=== PATIENT | female | born 1930 | race African-American/Black ===

== ENCOUNTER 2017-12-28 07:55 | Inpatient (IN) | payer MEDICARE, MEDICAID ==
[2017-12-28 08:50] LABS: Troponin I 0.752 ng/mL (< 0.028)
[2017-12-28] MEDS ORDERED: Piperacillin/Tazobactam 3.375 GM VIAL ONE ×2 (09:02→09:13)
[2017-12-28] MEDS ORDERED: Sodium Chloride 0.9% 100 ML ONE (09:13)
[2017-12-28] MEDS ORDERED: Ondansetron HCl/PF 4 MG/2 ML Vial IVP PRN (09:22)
[2017-12-28] MEDS ORDERED: Bisacodyl 10 MG SUPP PR PRN (09:22)
[2017-12-28] MEDS ORDERED: Acetaminophen 325 MG TAB PO PRN (09:22)
[2017-12-28] MEDS ORDERED: Dextrose 5% in Water 1,000 ML IV SCH ×2 (09:30→13:23)
--- NOTE | 2017-12-28 09:33 | CT ---
CT BRAIN WITHOUT CONTRAST: History: Nonverbal. Aphasic. Prior CVA. 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 There are multiple hypodensities along the right cerebellar hemisphere, new from the comparison examination. Moderate atrophy. No midline shift or mass effect. No hemorrhage. Moderate microvascular ischemic changes. IMPRESSION: 1. Chronic changes. No acute intracranial abnormalities. 2. Moderate fluid filling of the right mastoids. POS: C
--- NOTE | 2017-12-28 10:39 | PDOC.FPRHP ---
- History of Present Illness Chief Complaint: Lethargic History of Present Illness: 87 yo F care home resident with PMH of dmenetia, prior tias, gout and hypertension presents form nursing facility after pt was reported to be more lethargic over the last 24 hours. Family reports that the staff has noticed a change in her baseline energy and mentation over the last day. Additionally, they noted the pt had 2 BM's prior to being transferred to [facility] for further evaluation. On arrival to [facility] pt was thought to have RLL pneumonia as possible cause of her decreased energy and AMS. She was given IV levaquin and zosyn. On arrival to ED at [facility] she had a brain CT which did not show any acute intracranial process. She was found to be hypernatremic, hypothermic, bradycardic in the ED but BP has remained stable. Otherwise, unable to elicit any localizing symptoms from family or records. Pt unable to communicate at baseline. Does have a modified diet at care home including pureed solids and nectar thickened liquids. ED Course: Levaquin, zosyn - Allergies/Adverse Reactions Allergies Allergy/AdvReac Type Severity Reaction Status Date / Time No Known Allergies Allergy Verified 08/05/14 00:51 - Home Medications Medication Instructions Recorded Confirmed Type Allopurinol [Zyloprim] 1 tab PO DAILY 12/28/17 12/28/17 History Atorvastatin Calcium [Lipitor] 10 mg PO DAILY 12/28/17 12/28/17 History Carvedilol [Coreg] 6.25 mg PO BID 12/28/17 12/28/17 History Colchicine 0.6 mg PO BID 12/28/17 12/28/17 History Docusate [Colace] 100 mg PO DAILY 12/28/17 12/28/17 History Donepezil HCl [Aricept] 10 mg PO HS 12/28/17 12/28/17 History Furosemide [Lasix] 40 mg PO BID 12/28/17 12/28/17 History Ipratropium/Albuterol Sulfate 3 ml NEB TID 12/28/17 12/28/17 History Memantine HCl [Namenda] 10 mg PO BID 12/28/17 12/28/17 History Multivitamin [Multi-Vitamin Daily] 1 tablet PO DAILY 12/28/17 12/28/17 History Omeprazole Magnesium [Prilosec] 20 mg PO HS 12/28/17 12/28/17 History - History PMHx: TIA vs CVA, Dementia, HTN, gout PSHx: Hysterectomy, cholecystectomy FHx: CA, HTN, DMII, dementia Social: senior care resident Diet nectar thick with pureed - Review of Systems ROS unobtainable: due to mental status General: reports: fatigue (per family) - Vital signs BP: 137/94 HR: 67 RR: 22 Tmax: 95.6 Pox: 97% on RA Wt: 87Kg - Physical Exam Constitutional: other (Lethargic, Oriented X0) HEENT: normocephalic and atraumatic, conjunctiva clear, no scleral icterus Neck: supple, FROM, trachea midline, no LAD, no JVD, no thyromegaly Heart: normal S1/S2, no murmurs/rubs/gallops, pulses present, other (bradycardia , regular rhythm. Pitting edema to above knee 2+) Lungs: CTAB, no respiratory distress, no rales/rhonchi, no wheezing, no retractions, other (poor inspiratory effort) Abdomen: soft, non-tender, bowel sounds present, no masses/distention Neurological: other (No focal deficit, oriented X0, echolalia speech pattern) Skin: capillary refill <2 seconds, other (Stage 1 decub left buttocks) Heme/Lymphatic: no unusual bruising or bleeding, no petechia Psychiatric: other (End stage dementia, oriented X0, incomprehensible echolalic speech pattern) FMR H&P: Results - Labs Result Diagrams: 12/28/17 11:16 - EKG Interpretation EKG: A fib, bradycardia - Radiology Interpretation Chest x-ray Status: report reviewed by me (Patchy alveolar infiltrates, left pleural effusion) CT scan - head Status: report reviewed by me (No acute intracranial process) FMR H&P: A/P - Problem List (1) Encephalopathy acute Current Visit: Yes Status: Acute Code(s): G93.40 - ENCEPHALOPATHY, UNSPECIFIED (2) Elevated troponin Current Visit: Yes Status: Acute Code(s): R74.8 - ABNORMAL LEVELS OF OTHER SERUM ENZYMES (3) Hypernatremia Current Visit: Yes Status: Acute Code(s): E87.0 - HYPEROSMOLALITY AND HYPERNATREMIA (4) HTN (hypertension) Current Visit: Yes Status: Acute Code(s): I10 - ESSENTIAL (PRIMARY) HYPERTENSION (5) A-fib Current Visit: Yes Status: Acute Code(s): I48.91 - UNSPECIFIED ATRIAL FIBRILLATION (6) Transaminitis Current Visit: Yes Status: Acute Code(s): R74.0 - NONSPEC ELEV OF LEVELS OF TRANSAMNS & LACTIC ACID DEHYDRGNSE (7) Dementia Current Visit: No Status: Chronic Code(s): F03.90 - UNSPECIFIED DEMENTIA WITHOUT BEHAVIORAL DISTURBANCE - Plan 1) Encephalopathy: Unknown cause. Possibly 2/2 acute metabolic encephalopathy from hypernatremia vs infection vs cardiogenic -Pt given levaquin and zosyn in ER, will continue with coverage although CXR did not show evidence of pna and procalcitonin was negative. -BNP pending -D5W for hypernatremia, repeat BMP q4hrs, on chart review this appears to be a bit of a chronic issue, although current level higher than Na levels in the past 2) Elevated troponin: Pt had elevated troponins in the NSTEMI range which trended down. Most recent draw was less than original; however, higher than previous, will give therapeutic lovenox and cover. This is likely 2/2 demand ischemia as pt appears clinically overloaded and has a h/o diastolic failure. 3) Hypernatremia: d5W. Trend BMPs and continue to monitor. Possibly cause of encephalopathy. Given pt clinically volume overloaded, consider iatrogenic vs med effect vs hyperaldosteronism. -check serum and urine osmolality -trend 4) HTN: Stable, cont home medications 5) A-fib: cont home meds, consider decreased dose as pt is bradycardic 6)Transaminitis: Elevated AST and Alk phos. Trend. No evidence of GI distress/ TTP on exam. 7) Dementia: Cont home meds 8) PPX: Th lovenox and pepcid for dvt and GI ppx 9) Code Status: Pts daughters present in rooms and wish for pt to be full code Disposition/LOS: guarded, >/= 2 days FMR H&P: Upper Level - Pertinent history 87yo AAF with pmhx sig for dementia (FAST 7c at baseline) and prior TIA ( multiple) presents to [facility] after transfer from [place] ED for change in mental status from baseline. Pt found to be hypernatremic to 153 in [place], and found to have some infiltrate in the RML. Dx'ed as pneumonia and started emperically on abx (given levaquin in ED). Family at bedside states pt noted to be less responsive than baseline over the last 2-3 days and had increase in sleeping and decrease in her expressions. Last normal was noted to be 3 days ago. Baseline per family is pt singing and smiling, but is bed bound. She is cared for at [facility] by Dr. Munoz. PMHx- Afib dementia CKD - Pertinent findings PE- Gen- asleep but arousable, communicative but not clear speech, well appearing Lungs- faint crackles in bilateral bases CV- rrr, no mrg Abd- soft, nontender LE- 3+ pitting edema to b/l LE Psyc- alert when aroused, unable to answer questions Pertinent labs- Laboratory Tests 12/28/17 12/28/17 12/28/17 05:20 05:20 05:20 WBC 3.5 L Hgb 14.6 Hct 51.6 H Plt Count 157 Sodium 153 H Potassium 5.1 Chloride 120 H Carbon Dioxide 23 BUN 35 H Creatinine 1.95 H Estimated GFR (MDRD) 29 Glucose 88 Calcium 8.9 Total Bilirubin 1.0 AST 51 H ALT 31 Alkaline Phosphatase 256 H Creatine Kinase 51 CK-MB (CK-2) 3.9 Troponin I 0.867 H* Serum Total Protein 6.8 Albumin 3.2 L 12/28/17 08:17 WBC Hgb Hct Plt Count Sodium Potassium Chloride Carbon Dioxide BUN Creatinine Estimated GFR (MDRD) Glucose Calcium Total Bilirubin AST ALT Alkaline Phosphatase Creatine Kinase CK-MB (CK-2) Troponin I 0.752 H* Serum Total Protein Albumin CXR- rotated film. mild fluffy infiltrate of RML/interstitium, cardiomegaly vs. Left pleural effusion - Plan Date/Time: 12/28/17 1037 87yo AAF with pmhx dementia and prior TIA presents with-- 1) Acute toxic metabolic encephalopathy- likely secondary to hypernatremia vs. infection/PNA vs. CVA. treat hypernatremia. CT head negative. consider MRI. 2) Hypernatremia- Tx w/ d5w and monitor closely to avoid rapid correction. check serum & urine osmols. 3) Sepsis secondary to presumed PNA- hypothermic and leukopenic on admission. pending BCx. Cover with levaquin + zosyn for presumed infectious etiology to cover for pseudomonal and aspiration possibilities. repeat CXR in am, check procalcitonin. 4) NSTEMI due to demand ischemia (presumed)- trend troponins, give therapeutic lovenox (renally dosed). monitor for acute changes. 5) pAfib- monitor on telemetry 6) CKD4- avoid nephrotoxins, renally-dose meds. 7) LE edema- check TSH to rule out pretibial myxedema/ myxedema coma. check osmols. I, [Carmen Buck DO ([email or web address])], have evaluated this patient and agree with findings/plan as outlined by music industry intern resident. Pertinent changes/additions are listed here. Attending Addendum - Attending Addendum Date/Time: 12/28/17 3887 I personally evaluated the patient and discussed the management with Dr. Coleman I agree with the History, Examination, Assessment and Plan documented above with any addition or exceptions noted below. 87 yo patient transferred from [facility] to [place] ER with AMS today . Patient felt to have RLL PNA demand ischemia and transferred to [facility] for further care and evaluation. Patient with PMHX of advanced Dementia however decreased responsiveness noted today. Patient with prior mini-strokes per family , bedridden and placed in care home several years ago. Patient exam; Oriented X zero, patient arousable with stimulation, doesn't follow commands, no intelligible speech, contractures noted upper and lower extremities, Patient with bradycardia, mild hypothermia and edema to lower extremities, skin with superficial irritation to sacrum. CXR questionable infiltrate RLL rotated film. Lab hypernatremia, hyperchloremia elevated RFTs. CT of head negative for acute bleed CVA. Discussed history with Daughters in attendance one of which is designated POA and request DNR status at this time. Patient placed on empirical broad spectrum ABX with pseudomonas coverage intravenous hydration with D5W. Patient dependant feeder at [place] with nectar thickened pureed diet.
[2017-12-28 12:06] LABS: Anion Gap 12 mmol/L (10-20); BUN (Urea Nitrogen) 34 mg/dL (9.8-20.1); Calc. Creatinine Clearance 30 mL/min (70-130); Calcium 8.7 mg/dL (7.8-10.44); Carbon Dioxide 26 mmol/L (23-31); Chloride 119 mmol/L (98-107); Estimated GFR-MDRD 32; Potassium 3.9 mmol/L (3.5-5.1); Sodium 153 mmol/L (136-145)
[2017-12-28 12:21] LABS: Glucose 57 mg/dL (83-110)
[2017-12-28] MEDS ORDERED: Dextrose 50% Abboject 50 ML SYRINGE SLOW IVP STA (12:41)
[2017-12-28] MEDS ORDERED: Enoxaparin Sodium 30 MG/0.3 ML SYRINGE SC SCH (13:00)
[2017-12-28 13:12] LABS: Magnesium 1.9 mg/dL (1.6-2.6); Phosphorus 3.8 mg/dL (2.3-4.7)
[2017-12-28] MEDS ORDERED: Enoxaparin Sodium 100 MG/ML SYRINGE SC SCH (13:30)
[2017-12-28] MEDS: Piperacillin/Tazobactam 3.375 GM in Sodium Chloride 0.9% 100 ML IVPB SCH ×3 (14:10→23:39)
[2017-12-28 14:34] LABS: Osmolality, Serum 330 mOsm/kg (280-295)
[2017-12-28 14:47] LABS: CKMB 4.6 ng/mL (0-6.6)
[2017-12-28 14:56] LABS: Critical Call Chem Troponin I RESULT DECREASING; Troponin I 0.779 ng/mL (< 0.028)
[2017-12-28] MEDS ORDERED: Heparin 5,000 UNITS/ML VIAL SC SCH (15:00)
[2017-12-28 18:43] LABS: Anion Gap 11 mmol/L (10-20); BUN (Urea Nitrogen) 32 mg/dL (9.8-20.1); Calc. Creatinine Clearance 30 mL/min (70-130); Calcium 8.7 mg/dL (7.8-10.44); Carbon Dioxide 26 mmol/L (23-31); Chloride 118 mmol/L (98-107); Estimated GFR-MDRD 32; Glucose 76 mg/dL (83-110); Potassium 3.6 mmol/L (3.5-5.1); Sodium 151 mmol/L (136-145)
[2017-12-28] MEDS ORDERED: Docusate 100 MG CAP PO SCH (21:00)
[2017-12-28] MEDS: Dextrose 5% in Water 1,000 ML IV SCH ×2 (22:03→23:39)
[2017-12-29 04:38] LABS: #Eosinphils 0.1 thou/uL (0.0-0.7); #Lymphocytes 1.1 thou/uL (1.20-3.40); #Monocytes 0.5 thou/uL (0.11-0.59); #Neutrophils 2.3 thou/uL (1.40-6.50); %Basophils 0.6 % (0.0-1.0); %Eosinophils 3.6 % (0.0-10.0); %Lymphocytes 27.1 % (21.0-51.0); %Neutrophils 56.7 % (42.0-75.0); Hemoglobin 12.4 g/dL (12.0-16.0); Mean Corpuscular HGB CONC 30.3 g/dL (32.0-36.0); Mean Corpuscular Hemoglobin 29.7 pg (27.0-31.0); Mean Corpuscular Volume 98.2 fl (81.0-99.0); Mean Platelet Volume 10.6 fL (7.4-10.4); Platelet Count 121 thou/uL (130-400); RBC Distribution Width 17.1 % (11.5-14.5); Red Blood Cell (RBC) Count 4.17 mill/uL (4.20-5.40); White Blood Cell (WBC) Count 4.1 thou/uL (4.8-10.8)
--- NOTE | 2017-12-29 04:54 | CON ---
DATE OF CONSULTATION: 12/28/2017 CONSULTING PHYSICIAN: Melissa Monge M.D. REQUESTING PHYSICIAN: [facility]. REASON FOR CONSULTATION: Hyponatremia with altered mental status. IMPRESSION: 1. Hyponatremia. This is likely free water deficit in the context of a limited free water intake. 2. Acute kidney injury, probably acute on chronic kidney disease. 3. Mental status change in the context of baseline dementia been exacerbated by electrolyte abnormal ity in this case hyponatremia. PLAN: 1. Free water repletion and we will increase the current IV fluid rate. 2. P.r.n. diuresis with stabilization of patient's electrolytes unless patient begins to develop res piratory distress. 3. Renally dose all medications per low GFR. 4. Avoid potentially nephrotoxic agents. HISTORY OF PRESENT ILLNESS: History is that of an 87-year-old female patient, long-term resident, who was brought in with altered mental status, noted with sodium of 153 likely in the context of poo r p.o. intake. The patient at baseline, does have severe dementia. However, deterioration in this n ecessitated presentation to the ER. There is hyponatremia necessitated this renal consultation. PAST MEDICAL HISTORY: Significant for dementia, atrial fibrillation, chronic kidney disease. MEDICATIONS: Reviewed and as documented on [facility]. FAMILY HISTORY: Not significantly related to presenting illness. SOCIAL HISTORY: The patient is a long-term resident. REVIEW OF SYSTEMS: Highly limited given the fact that this patient could not verbalize. PHYSICAL EXAMINATION: GENERAL: The patient was found not to be in any obvious distress. Noted with the following vital si gns. VITAL SIGNS: Afebrile with temperature 96.9, pulse 61, respiratory rate of 20, O2 saturation of 100% with blood pressure 121/81. HEENT: Unremarkable with moist oral mucosa. No conjunctival injection or icterus. NECK: Supple. CARDIOVASCULAR SYSTEM: First and second heart sounds were heard. RESPIRATORY SYSTEM: Clear to auscultation. DIGESTIVE SYSTEM: Revealed a benign abdomen. EXTREMITIES: Showed 2+ bilateral lower extremity edema. SUMMARY: This is an 87-year-old female patient who was brought in with mental status change and note d with hyponatremia. Thank you for this consultation. We will follow with you.
[2017-12-29 04:55] LABS: ALT (SGPT) 20 U/L (8-55); AST (SGOT) 29 U/L (5-34); Albumin 2.6 g/dL (3.4-4.8); Alkaline Phosphatase 183 U/L (40-150); Anion Gap 9 mmol/L (10-20); BUN (Urea Nitrogen) 31 mg/dL (9.8-20.1); Bilirubin, Total 1.1 mg/dL (0.2-1.2); Calc. Creatinine Clearance 32 mL/min (70-130); Calcium 8.1 mg/dL (7.8-10.44); Carbon Dioxide 25 mmol/L (23-31); Chloride 119 mmol/L (98-107); Estimated GFR-MDRD 33; Globulin 2.9 g/dL (2.4-3.5); Glucose 92 mg/dL (83-110); Potassium 3.6 mmol/L (3.5-5.1); Protein, Total 5.5 g/dL (6.0-8.3); Sodium 149 mmol/L (136-145)
[2017-12-29] MEDS ORDERED: Piperacillin/Tazobactam 2.25 GM in Sodium Chloride 0.9% 100 ML IVPB SCH (06:00)
--- NOTE | 2017-12-29 08:26 | PDOC.FM ---
- Subjective Subjective: No acute events overnight. Pt appears more alert than yesterday but still has incomprehensible, repetitive speech pattern. She is arousable to verbal stimuli. Persistent echolelic speech pattern. Sodium continues to improve with free water replacement. She has persistent LE edema, unchanged from yesterday. - Objective Vital Signs & Weight: Vital Signs (12 hours) Temp Pulse Resp BP Pulse Ox 12/29/17 07:55 52 L 20 96 12/29/17 07:40 96.3 F L 57 L 18 99 12/29/17 07:39 96.3 F L 57 L 117/73 93 L 12/29/17 03:56 97.0 F L 62 19 111/55 L 98 12/28/17 23:41 96.7 F L 62 18 111/69 95 Weight Weight 86.693 kg I&O: 12/28/17 12/29/17 12/30/17 06:59 06:59 06:59 Intake Total 2362 Output Total 475 Balance 1887 Result Diagrams: 12/29/17 03:50 12/29/17 03:50 <Danieel Coleman - Last Filed: 12/29/17 08:23> - Objective Vital Signs & Weight: Vital Signs (12 hours) Temp Pulse Resp BP Pulse Ox 12/29/17 11:40 96.7 F L 59 L 24 H 115/86 91 L 12/29/17 07:55 52 L 20 96 12/29/17 07:40 96.3 F L 57 L 18 99 12/29/17 07:39 96.3 F L 57 L 117/73 93 L 12/29/17 03:56 97.0 F L 62 19 111/55 L 98 Weight Weight 86.693 kg I&O: 12/28/17 12/29/17 12/30/17 06:59 06:59 06:59 Intake Total 2362 240 Output Total 475 Balance 1887 240 Result Diagrams: 12/29/17 03:50 12/29/17 03:50 <Stefano Shipman - Last Filed: 12/29/17 12:08> Phys Exam - Physical Examination Constitutional: NAD HEENT: sclera anicteric Neck: no nodes, no JVD Respiratory: no wheezing, no rales, no rhonchi, clear to auscultation bilateral (Difficult exam, pt vocalizing throughout exam) Cardiovascular: RRR, no significant murmur, no rub Gastrointestinal: soft, non-tender, no distention, positive bowel sounds Musculoskeletal: pulses present, edema present (2+ pitting to above knees) Neurological: non-focal Deviation from normal: Dysarhthric, repetitive echolalic speech pattern. Incomprehensible. A&O X0 Skin: no rash, normal turgor, cap refill <2 seconds <Daniele Coleman - Last Filed: 12/29/17 08:23> Dx/Plan (1) Encephalopathy acute Code(s): G93.40 - ENCEPHALOPATHY, UNSPECIFIED Status: Acute (2) Elevated troponin Code(s): R74.8 - ABNORMAL LEVELS OF OTHER SERUM ENZYMES Status: Acute (3) Hypernatremia Code(s): E87.0 - HYPEROSMOLALITY AND HYPERNATREMIA Status: Acute (4) HTN (hypertension) Code(s): I10 - ESSENTIAL (PRIMARY) HYPERTENSION Status: Acute (5) A-fib Code(s): I48.91 - UNSPECIFIED ATRIAL FIBRILLATION Status: Acute (6) Transaminitis Code(s): R74.0 - NONSPEC ELEV OF LEVELS OF TRANSAMNS & LACTIC ACID DEHYDRGNSE Status: Acute (7) Dementia Code(s): F03.90 - UNSPECIFIED DEMENTIA WITHOUT BEHAVIORAL DISTURBANCE Status: Chronic - Plan Plan: 1) Encephalopathy: Unknown cause. Possibly 2/2 acute metabolic encephalopathy from hypernatremia vs infection vs cardiogenic -Pt has clinically improved with correction of her Na. Will continue Na correction. Nephro consulted, appreciate recommendations. -Will DC abx at this time as procal negative and repeat CXR shows no evidence of focal consolidation. 2) Elevated troponin: Pt had elevated troponins in the NSTEMI range which trended down. -Likely 2/2 demand ischemia, troponins trended down -hold therapeutic lovenox at this time. Continue aspirin daily and lovenox for DVT ppx -Echo today for new onset HF - Will ultimately need diuresis, but that is currently complicated by her hypernatremia and free water deficit. Nephro consulted, appreciate recs. 3) Hypernatremia: d5W. Trend BMPs and continue to monitor. Possibly cause of encephalopathy. -Pt improved overnight with down-trending Na. -Nephro consulted, appreciate recs - Free water replacement -AM BMP, trend 4) HTN: Stable, cont home medications 5) A-fib: cont home meds, consider decreased dose as pt is bradycardic 6)Transaminitis: Stable, no evidence of acute process on exam. 7) Dementia: Cont home meds Dispo: Improved, stable. We will continue free water replacement for correction of hypernatremia. Echo today for new onset CHF, BNP>2000. <Daniele Coleman - Last Filed: 12/29/17 08:23> (1) Encephalopathy acute Code(s): G93.40 - ENCEPHALOPATHY, UNSPECIFIED Status: Acute (2) Elevated troponin Code(s): R74.8 - ABNORMAL LEVELS OF OTHER SERUM ENZYMES Status: Acute (3) Hypernatremia Code(s): E87.0 - HYPEROSMOLALITY AND HYPERNATREMIA Status: Acute (4) HTN (hypertension) Code(s): I10 - ESSENTIAL (PRIMARY) HYPERTENSION Status: Acute (5) A-fib Code(s): I48.91 - UNSPECIFIED ATRIAL FIBRILLATION Status: Acute (6) Transaminitis Code(s): R74.0 - NONSPEC ELEV OF LEVELS OF TRANSAMNS & LACTIC ACID DEHYDRGNSE Status: Acute (7) Dementia Code(s): F03.90 - UNSPECIFIED DEMENTIA WITHOUT BEHAVIORAL DISTURBANCE Status: Chronic <Stefano Shipman - Last Filed: 12/29/17 12:08> Attending Addendum - Attending Addendum Date/Time: 12/29/17 1203 I personally evaluated the patient and discussed the management with Dr. Coleman I agree with the History, Examination, Assessment and Plan documented above with any addition or exceptions noted below. Patient improved much more alert and animated, Antibiotic discontinued with no overwhelming evidence for PNA. Appreciate Nephrology recommendations regard hypernatremia currently correcting and will diuresis prn. Rule out secondary hypothyroidism with free T4 today. Long standing hypernatremia noted with impaired thirst and institutional placement as most likely major contributing factors. <Stefano Shipman - Last Filed: 12/29/17 12:08>
--- NOTE | 2017-12-29 08:58 | RAD ---
PORTABLE FRONTAL CHEST RADIOGRAPH: Date: 12/29/17 COMPARISON: 12/28/17. HISTORY: Pleural fluid, concern for pneumonia. FINDINGS: There is no pneumothorax. There is atherosclerotic calcification of the aortic arch. There is dense o pacity in the left base suggesting left basilar consolidation/collapse and probable small left pleura l effusion. Small volume fluid is suspected in the region of the minor fissure. There has been no sig nificant interval change. IMPRESSION: Stable appearance of the chest. Continued follow-up to full resolution advised. POS: [place]
[2017-12-29] MEDS ORDERED: Enoxaparin Sodium 40 MG/0.4 ML SYRINGE SC SCH (09:00)
[2017-12-29] MEDS ORDERED: Enoxaparin Sodium 100 MG/ML SYRINGE SC SCH (09:00)
[2017-12-29] MEDS: Docusate 100 MG CAP PO SCH (09:13)
[2017-12-29] MEDS: Multivit, Therapeutic 1 TAB PO SCH (09:13)
[2017-12-29] MEDS: Atorvastatin Calcium 10 MG TAB PO SCH (09:13)
[2017-12-29] MEDS: Allopurinol 300 MG TAB PO SCH (09:14)
[2017-12-29] MEDS: Dextrose 5% in Water 1,000 ML IV SCH ×3 (14:06→21:00)
[2017-12-29 16:35] LABS: Anion Gap 7 mmol/L (10-20); BUN (Urea Nitrogen) 29 mg/dL (9.8-20.1); Calc. Creatinine Clearance 33 mL/min (70-130); Calcium 8.1 mg/dL (7.8-10.44); Carbon Dioxide 24 mmol/L (23-31); Chloride 117 mmol/L (98-107); Estimated GFR-MDRD 35; Glucose 84 mg/dL (83-110); Potassium 3.4 mmol/L (3.5-5.1); Sodium 145 mmol/L (136-145)
[2017-12-29] MEDS ORDERED: Potassium Chloride 20 MEQ TAB PO SCH (17:15)
--- NOTE | 2017-12-29 18:53 | PRG ---
DATE OF SERVICE: 12/29/2017 SUBJECTIVE: The patient seen and examined, seems to be improving, noted with the following. PHYSICAL EXAMINATION: VITAL SIGNS: Afebrile, temperature 96.3, pulse 52, respiratory rate 20, blood pressure 119/73, O2 sa t 96%. HEENT: Unremarkable. Moist oral mucosa. NECK: Supple, no conjunctival injection or icterus. CARDIOVASCULAR SYSTEM: First and second heart sounds were heard. RESPIRATORY SYSTEM: Clear to auscultation. DIGESTIVE SYSTEM: Revealed a benign abdomen. EXTREMITIES: Showed peripheral edema. IMPRESSION: 1. Hyponatremia, which seems to have been resolved status post free water repletion. 2. Mental status change related to electrolyte abnormality in this case. 3. Hyperonatremia compounded by a baseline advanced dementia. PLAN: 1. Deescalate free water repletion. 2. Monitor the electrolytes closely. 3. Encourage water intake. 4. Further management to be dependent on the clinical.
[2017-12-29] MEDS: Pantoprazole 40 MG GRANULES PACKET PO SCH (20:54)
[2017-12-29] MEDS ORDERED: Donepezil HCl 10 MG TAB PO SCH (21:00)
[2017-12-30 06:09] LABS: #Eosinphils 0.1 thou/uL (0.0-0.7); #Monocytes 0.4 thou/uL (0.11-0.59); #Neutrophils 2.1 thou/uL (1.40-6.50); %Basophils 1.3 % (0.0-1.0); %Eosinophils 3.4 % (0.0-10.0); %Lymphocytes 27.4 % (21.0-51.0); %Monocytes 11.6 % (0.0-10.0); %Neutrophils 56.3 % (42.0-75.0); Hemoglobin 11.8 g/dL (12.0-16.0); Mean Corpuscular HGB CONC 31.9 g/dL (32.0-36.0); Mean Corpuscular Hemoglobin 31.3 pg (27.0-31.0); Mean Platelet Volume 10.3 fL (7.4-10.4); Platelet Count 118 thou/uL (130-400); RBC Distribution Width 16.8 % (11.5-14.5); Red Blood Cell (RBC) Count 3.78 mill/uL (4.20-5.40); White Blood Cell (WBC) Count 3.7 thou/uL (4.8-10.8)
[2017-12-30 06:19] LABS: ALT (SGPT) 19 U/L (8-55); AST (SGOT) 27 U/L (5-34); Albumin 2.7 g/dL (3.4-4.8); Alkaline Phosphatase 175 U/L (40-150); Anion Gap 9 mmol/L (10-20); BUN (Urea Nitrogen) 27 mg/dL (9.8-20.1); Calc. Creatinine Clearance 32 mL/min (70-130); Calcium 8.2 mg/dL (7.8-10.44); Carbon Dioxide 25 mmol/L (23-31); Chloride 116 mmol/L (98-107); Estimated GFR-MDRD 34; Globulin 2.8 g/dL (2.4-3.5); Glucose 83 mg/dL (83-110); Potassium 4.1 mmol/L (3.5-5.1); Protein, Total 5.5 g/dL (6.0-8.3); Sodium 146 mmol/L (136-145)
[2017-12-30] MEDS ORDERED: Dextrose 5% in Water 1,000 ML IV SCH (06:33)
--- NOTE | 2017-12-30 08:14 | PDOC.FM ---
- Subjective Subjective: No acute events overnight. Family not at bedside this am. Pts mentation has improved since admission and [id number] the same from yesterdays exam. She has incomprehensible echolalic speech pattern. Will touch base with family to better assess pts current mental status compared with baseline. Free water rate decreased last night and pts am Na 146, increase free water rate to 75mls/hr. Pt did have a few episodes of bradycardia overnight and throughout the afternoon. She was bradycardic this am; however, she was awake and at her baseline mentation compared to yesterday. Echo pending. - Objective Vital Signs & Weight: Vital Signs (12 hours) Temp Pulse Resp BP Pulse Ox 12/30/17 07:52 97 12/30/17 07:51 58 L 20 97 12/30/17 07:31 97.3 F L 43 L 24 H 127/67 12/30/17 03:00 97.2 F L 55 L 20 104/46 L 100 12/30/17 00:00 98.9 F 55 L 22 H 104/48 L 99 12/29/17 20:50 98.0 F 70 18 Weight Admit Weight 86.908 kg Weight 86.353 kg I&O: 12/29/17 12/30/17 12/31/17 06:59 06:59 06:59 Intake Total 2366 6291 Output Total 475 750 Balance 1886 1960 Result Diagrams: 12/30/17 04:38 12/30/17 04:38 <Daniele Coleman - Last Filed: 12/30/17 09:08> - Objective Vital Signs & Weight: Vital Signs (12 hours) Temp Pulse Resp BP Pulse Ox 12/30/17 11:12 98.1 F 42 L 24 H 105/55 L 96 12/30/17 08:00 97.3 F L 58 L 20 97 12/30/17 07:52 97 12/30/17 07:51 58 L 20 97 12/30/17 07:31 97.3 F L 43 L 24 H 127/67 12/30/17 03:00 97.2 F L 55 L 20 104/46 L 100 Weight Admit Weight 86.908 kg Weight 86.353 kg I&O: 12/29/17 12/30/17 12/31/17 06:59 06:59 06:59 Intake Total 2362 2711 Output Total 824 916 Balance 1887 1960 Result Diagrams: 12/30/17 04:38 12/30/17 04:38 <UmbertoNorthwest Arctic - Last Filed: 12/30/17 12:11> Phys Exam - Physical Examination Constitutional: NAD HEENT: moist MMs, sclera anicteric Neck: no nodes, no JVD Respiratory: no wheezing, no rales, no rhonchi, clear to auscultation bilateral Cardiovascular: no significant murmur, no rub bradycardia, regular rhythm Gastrointestinal: soft, non-tender, no distention, positive bowel sounds Musculoskeletal: pulses present, edema present 2+ pitting to knees Neurological: non-focal Deviation from normal: A&O X0, echolalic speech pattern. Orients to voice. <Daniele Coleman - Last Filed: 12/30/17 09:08> Dx/Plan (1) Encephalopathy acute Code(s): G93.40 - ENCEPHALOPATHY, UNSPECIFIED Status: Acute (2) Elevated troponin Code(s): R74.8 - ABNORMAL LEVELS OF OTHER SERUM ENZYMES Status: Acute (3) Hypernatremia Code(s): E87.0 - HYPEROSMOLALITY AND HYPERNATREMIA Status: Acute (4) HTN (hypertension) Code(s): I10 - ESSENTIAL (PRIMARY) HYPERTENSION Status: Acute (5) A-fib Code(s): I48.91 - UNSPECIFIED ATRIAL FIBRILLATION Status: Acute (6) Transaminitis Code(s): R74.0 - NONSPEC ELEV OF LEVELS OF TRANSAMNS & LACTIC ACID DEHYDRGNSE Status: Acute (7) Dementia Code(s): F03.90 - UNSPECIFIED DEMENTIA WITHOUT BEHAVIORAL DISTURBANCE Status: Chronic (8) Bradycardia Code(s): R00.1 - BRADYCARDIA, UNSPECIFIED Status: Acute - Plan Plan: 1) Encephalopathy: Likely 2/2 hypernatremia -Pt has clinically improved with correction of her Na. Will continue Na correction. Nephro consulted, appreciate recommendations. -Will DC abx at this time as procal negative and repeat CXR shows no evidence of focal consolidation and procal negative - Free water rate dropped to 75ml/hr D5W. Continue, repeat am bmp 2) Elevated troponin: Pt had elevated troponins in the NSTEMI range which trended down. -Likely 2/2 demand ischemia, troponins trended down -hold therapeutic lovenox at this time. Continue aspirin daily and lovenox for DVT ppx -Echo pending - Will ultimately need diuresis, but that is currently complicated by her hypernatremia and free water deficit. Nephro consulted, appreciate recs. - Will add spirinolactone today @ 12.5mg given hypernatremia, hypokalemia and volume overload. 3) Hypernatremia: d5W. Trend BMPs and continue to monitor. Possibly cause of encephalopathy. -Pt improved overnight with down-trending Na. -Nephro consulted, appreciate recs - Free water replacement -AM BMP, trend 4) HTN: Stable, cont home medications 5) A-fib: cont home meds, consider decreased dose as pt is bradycardic 6)Transaminitis: Stable, no evidence of acute process on exam. 7) Dementia: Cont home meds 8) Bradycardia: possibly 2/2 med reaction vs beginning of sick sinus syndrome -pt asymptomatic from pedro luis and BP stable -will meet with family today and determine how aggressive they wish to be with this issue. -Donepizil held as potential cause of pedro luis -rate mid 30s-70s -monitor Dispo: Improved, stable. We will continue free water replacement for correction of hypernatremia. Echo pending. for new onset CHF, BNP>2000. Add spirinolactone. <Daniele Coleman - Last Filed: 12/30/17 09:08> (1) Encephalopathy acute Code(s): G93.40 - ENCEPHALOPATHY, UNSPECIFIED Status: Acute (2) Elevated troponin Code(s): R74.8 - ABNORMAL LEVELS OF OTHER SERUM ENZYMES Status: Acute (3) Hypernatremia Code(s): E87.0 - HYPEROSMOLALITY AND HYPERNATREMIA Status: Acute (4) HTN (hypertension) Code(s): I10 - ESSENTIAL (PRIMARY) HYPERTENSION Status: Acute (5) A-fib Code(s): I48.91 - UNSPECIFIED ATRIAL FIBRILLATION Status: Acute (6) Transaminitis Code(s): R74.0 - NONSPEC ELEV OF LEVELS OF TRANSAMNS & LACTIC ACID DEHYDRGNSE Status: Acute (7) Dementia Code(s): F03.90 - UNSPECIFIED DEMENTIA WITHOUT BEHAVIORAL DISTURBANCE Status: Chronic <Stefano Shipman - Last Filed: 12/30/17 12:11> Attending Addendum - Attending Addendum Date/Time: 12/30/17 7912 I personally evaluated the patient and discussed the management with Dr. Coleman I agree with the History, Examination, Assessment and Plan documented above with any addition or exceptions noted below.Patient nearing baseline level of function will need to discuss care goals with family bradycardia noted concern SSS and potential further measures. <Stefano Shipman - Last Filed: 12/30/17 12:11>
[2017-12-30] MEDS ORDERED: Spironolactone 25 MG TAB PO SCH (09:30)
[2017-12-30] MEDS: Docusate 100 MG CAP PO SCH (10:18)
[2017-12-30] MEDS: Atorvastatin Calcium 10 MG TAB PO SCH (10:23)
[2017-12-30] MEDS: Enoxaparin Sodium 30 MG/0.3 ML SYRINGE SC SCH (10:23)
[2017-12-30] MEDS: Multivit, Therapeutic 1 TAB PO SCH (10:24)
[2017-12-30] MEDS: Allopurinol 300 MG TAB PO SCH (10:24)
--- NOTE | 2017-12-30 16:55 | PDOC.EVN ---
Event Note - Event Note Event Note: Had family meeting with daughter, Ilana , regarding fluid deficit , pts impaired thirst in light of her dementia and bradycardia. Regarding bradycardia and heart-failure as evidenced by echo read today with EF 25-30%, family declines cardiolgy consult at this time. States they would like God to take her when her heart stops and does not want pacer/aicd placed. Regarding the persistent fluid deficit in light of her dementia and recurrent hypernatremia, discussed R/B/A to options. Family would like pt to have PEG- tube replaced so she is able to have free water flushes regularly and maintain hydration status. Has a h/o PEG tube previously and "did well" with it. Consult placed for GI intervention for PEG.
[2017-12-30] MEDS: Pantoprazole 40 MG GRANULES PACKET PO SCH (19:59)
--- NOTE | 2017-12-30 20:36 | EKG ---
Test Reason : Blood Pressure : / mmHG Vent. Rate : 045 BPM Atrial Rate : 250 BPM P-R Int : 000 ms QRS Dur : 128 ms QT Int : 502 ms P-R-T Axes : 000 -75 162 degrees QTc Int : 434 ms Atrial flutter with variable A-V block Left axis deviation Non-specific intra-ventricular conduction block Inferior infarct , age undetermined Cannot rule out Anteroseptal infarct , age undetermined T wave abnormality, consider lateral ischemia Abnormal ECG When compared with ECG of 28-DEC-2017 08:06, (Unconfirmed) Atrial flutter has replaced Atrial fibrillation QT has shortened Confirmed by SHARIF DONALD, DR. Evans ([id number]) on 12/30/2017 8:35:44 PM Referred By: WEI Confirmed By:DR. Nathan OLGUIN MD
--- NOTE | 2017-12-30 22:03 | PRG ---
DATE OF SERVICE: 12/30/2017 SUBJECTIVE: The patient seen and examined. OBJECTIVE: VITAL SIGNS: Afebrile with temperature 98, pulse 66, respiratory rate 20, blood pressure 120/62. HEENT: Unremarkable with moist oral mucosa. Neck is supple. No conjunctival injection or icterus. CARDIOVASCULAR: First and second heart sounds were heard. RESPIRATORY: Clear to auscultation. DIGESTIVE: Revealed a benign abdomen, positive bowel sounds. EXTREMITIES: No peripheral edema. SKIN: No new gross rash. LYMPHATICS: No peripheral lymphadenopathy. IMPRESSION: Hyponatremia, which is much improved with mental status change, improved more or less ba ck to the patient's baseline. PLAN: 1. Free water repletion. Unfortunately, the patient seems drinking much. Therefore, the medeiros taylor of this hyponatremia very high. 2. Further management to be dependent on the clinical course.
[2017-12-31 05:07] LABS: #Eosinphils 0.2 thou/uL (0.0-0.7); #Lymphocytes 1.3 thou/uL (1.20-3.40); #Monocytes 0.4 thou/uL (0.11-0.59); #Neutrophils 1.5 thou/uL (1.40-6.50); %Basophils 1.2 % (0.0-1.0); %Eosinophils 5.2 % (0.0-10.0); %Lymphocytes 37.5 % (21.0-51.0); %Monocytes 12.3 % (0.0-10.0); %Neutrophils 43.8 % (42.0-75.0); Hemoglobin 11.9 g/dL (12.0-16.0); Mean Corpuscular HGB CONC 31.4 g/dL (32.0-36.0); Mean Corpuscular Hemoglobin 30.4 pg (27.0-31.0); Mean Platelet Volume 9.8 fL (7.4-10.4); Platelet Count 119 thou/uL (130-400); RBC Distribution Width 17.2 % (11.5-14.5); Red Blood Cell (RBC) Count 3.91 mill/uL (4.20-5.40); White Blood Cell (WBC) Count 3.4 thou/uL (4.8-10.8)
[2017-12-31 05:27] LABS: ALT (SGPT) 16 U/L (8-55); AST (SGOT) 25 U/L (5-34); Albumin 2.7 g/dL (3.4-4.8); Alkaline Phosphatase 170 U/L (40-150); Anion Gap 10 mmol/L (10-20); BUN (Urea Nitrogen) 22 mg/dL (9.8-20.1); Bilirubin, Total 1.1 mg/dL (0.2-1.2); Calc. Creatinine Clearance 35 mL/min (70-130); Calcium 8.8 mg/dL (7.8-10.44); Carbon Dioxide 23 mmol/L (23-31); Chloride 116 mmol/L (98-107); Estimated GFR-MDRD 37; Glucose 86 mg/dL (83-110); Potassium 4.6 mmol/L (3.5-5.1); Protein, Total 5.7 g/dL (6.0-8.3); Sodium 144 mmol/L (136-145)
[2017-12-31] MEDS ORDERED: Furosemide 20 MG/2 ML VIAL SLOW IVP SCH (06:45)
[2017-12-31] MEDS ORDERED: Spironolactone 25 MG TAB PO SCH (08:00)
--- NOTE | 2017-12-31 09:05 | PRG ---
DATE OF SERVICE: 12/31/2017 The patient is seen and examined. PHYSICAL EXAMINATION: VITAL SIGNS: Afebrile with temperature 96.9, pulse 53, respiratory rate of 18, O2 sat 99%, blood pre ssure 120/74. HEENT: Unremarkable with moist oral mucosa. NECK: Supple, no conjunctival injection or icterus. CARDIOVASCULAR: First and second heart sounds were heard. RESPIRATORY: Clear to auscultation. DIGESTIVE: Revealed a benign abdomen with positive bowel sounds. EXTREMITIES: No peripheral edema. SKIN: No new gross rash. LYMPHATICS: No peripheral lymphadenopathy. LABORATORY INVESTIGATION: Showed a sodium of 144, creatinine 1.59. IMPRESSION: 1. Hypernatremia, which is much improved status post free water repletion. 2. Acute on chronic kidney disease, much improved status post rehydration. PLAN: 1. Encourage free water intake. 2. Further management to be dependent on the clinical course. 3. Avoid daily blood draws, especially as related to a CBC to avoid iatrogenic anemia in this patien rhett
[2017-12-31 09:35] VITALS: BMI 33.0
[2017-12-31] MEDS: Enoxaparin Sodium 30 MG/0.3 ML SYRINGE SC SCH (09:41)
[2017-12-31] MEDS: Allopurinol 300 MG TAB PO SCH (09:41)
[2017-12-31] MEDS: Docusate 100 MG CAP PO SCH (09:42)
[2017-12-31] MEDS: Atorvastatin Calcium 10 MG TAB PO SCH (09:42)
[2017-12-31] MEDS: Multivit, Therapeutic 1 TAB PO SCH (09:42)
--- NOTE | 2017-12-31 09:50 | PDOC.FM ---
- Subjective Subjective: No acute events overnight. Pt appears to be at baseline mentation. Family meeting between applications support lead resident and family yesterday: Family wishes to have peg tube placed to give pt free water to prevent hypernatremia in the future. - Objective Vital Signs & Weight: Vital Signs (12 hours) Temp Pulse Resp BP Pulse Ox 12/31/17 08:00 96.9 F L 53 L 18 99 12/31/17 07:22 96.9 F L 53 L 18 120/74 94 L 12/31/17 06:18 98 12/31/17 06:16 51 L 16 98 12/31/17 03:00 96.6 F L 55 L 20 130/57 L 100 12/30/17 23:00 97.9 F 53 L 22 H 127/66 99 Weight Admit Weight 86.908 kg Weight 87.498 kg I&O: 12/30/17 12/31/17 01/01/18 06:59 06:59 06:59 Intake Total 2711 770 Output Total 750 495 Balance 1960 275 Result Diagrams: 12/31/17 04:26 12/31/17 04:26 <Daniele Coleman - Last Filed: 12/31/17 09:49> - Objective Vital Signs & Weight: Vital Signs (12 hours) Temp Pulse Resp BP Pulse Ox 12/31/17 12:17 59 L 16 12/31/17 11:06 54 L 18 158/78 H 97 12/31/17 08:00 96.9 F L 53 L 18 99 12/31/17 07:22 96.9 F L 53 L 18 120/74 94 L 12/31/17 06:18 98 12/31/17 06:16 51 L 16 98 12/31/17 03:00 96.6 F L 55 L 20 130/57 L 100 Weight Admit Weight 86.908 kg Weight 87.498 kg I&O: 12/30/17 12/31/17 01/01/18 06:59 06:59 06:59 Intake Total 2711 770 Output Total 750 495 Balance 1960 275 Result Diagrams: 12/31/17 04:26 12/31/17 04:26 <Stefano Shipman - Last Filed: 12/31/17 13:37> Phys Exam - Physical Examination Constitutional: NAD HEENT: PERRLA, sclera anicteric Neck: no nodes, no JVD Respiratory: no wheezing, no rales, no rhonchi, clear to auscultation bilateral Cardiovascular: no significant murmur, no rub bradycardia, regular rhythm Gastrointestinal: soft, non-tender, no distention Musculoskeletal: pulses present, edema present (2+ pitting) Neurological: non-focal, moves all 4 limbs Deviation from normal: A&O X0 Skin: normal turgor, cap refill <2 seconds <Daniele Coleman - Last Filed: 12/31/17 09:49> Dx/Plan (1) Encephalopathy acute Code(s): G93.40 - ENCEPHALOPATHY, UNSPECIFIED Status: Acute (2) Elevated troponin Code(s): R74.8 - ABNORMAL LEVELS OF OTHER SERUM ENZYMES Status: Acute (3) Hypernatremia Code(s): E87.0 - HYPEROSMOLALITY AND HYPERNATREMIA Status: Acute (4) HTN (hypertension) Code(s): I10 - ESSENTIAL (PRIMARY) HYPERTENSION Status: Acute (5) A-fib Code(s): I48.91 - UNSPECIFIED ATRIAL FIBRILLATION Status: Acute (6) Transaminitis Code(s): R74.0 - NONSPEC ELEV OF LEVELS OF TRANSAMNS & LACTIC ACID DEHYDRGNSE Status: Acute (7) Dementia Code(s): F03.90 - UNSPECIFIED DEMENTIA WITHOUT BEHAVIORAL DISTURBANCE Status: Chronic (8) Bradycardia Code(s): R00.1 - BRADYCARDIA, UNSPECIFIED Status: Acute (9) HFrEF (heart failure with reduced ejection fraction) Code(s): I50.20 - UNSPECIFIED SYSTOLIC (CONGESTIVE) HEART FAILURE Status: Acute - Plan Plan: 1) Encephalopathy: Likely 2/2 hypernatremia -continue free water repletion -GI consult today as family wants pt to have peg tube -will consult palliatuve care for Goals of care discussion with family -Na has corrected -Will continue spironolactone and give one time dose of IV lasix. Cont gentle diuresis as pts bp tolerates 2) Elevated troponin: Pt had elevated troponins in the NSTEMI range which trended down. -Likely 2/2 demand ischemia, troponins trended down -cont ppx lovenox -gentle diuresis as pt bp tolerates -spironolactone and prn lasix 3) Hypernatremia: d5W. Trend BMPs and continue to monitor. Possibly cause of encephalopathy. -resolved. Will need free water replacement -GI consult for possible PEG tube placement 4) HTN: Pts BP running low normal, appropriate for pts age goal BP <150/90 5) A-fib: cont home meds -ppx anticoag -bradycardia possibly 2/2 beginning of SSS vs ach-i side effect 6)Transaminitis: resolved 7) Dementia: Cont home meds, donepizil held as possibly worsening pts bradycardia 8) Bradycardia: possibly 2/2 med reaction vs beginning of sick sinus syndrome -pt asymptomatic from pedro luis and BP stable -pts family does not desire cardiology intervention or AICD placement -palliative consult for goals of care <Daniele Coleman - Last Filed: 12/31/17 09:49> (1) Encephalopathy acute Code(s): G93.40 - ENCEPHALOPATHY, UNSPECIFIED Status: Acute (2) Elevated troponin Code(s): R74.8 - ABNORMAL LEVELS OF OTHER SERUM ENZYMES Status: Acute (3) Hypernatremia Code(s): E87.0 - HYPEROSMOLALITY AND HYPERNATREMIA Status: Acute (4) HTN (hypertension) Code(s): I10 - ESSENTIAL (PRIMARY) HYPERTENSION Status: Acute (5) A-fib Code(s): I48.91 - UNSPECIFIED ATRIAL FIBRILLATION Status: Acute (6) Transaminitis Code(s): R74.0 - NONSPEC ELEV OF LEVELS OF TRANSAMNS & LACTIC ACID DEHYDRGNSE Status: Acute (7) Dementia Code(s): F03.90 - UNSPECIFIED DEMENTIA WITHOUT BEHAVIORAL DISTURBANCE Status: Chronic <Stefano Shipman - Last Filed: 12/31/17 13:37> Attending Addendum - Attending Addendum Date/Time: 12/31/17 [id number] I personally evaluated the patient and discussed the management with Dr. Coleman I agree with the History, Examination, Assessment and Plan documented above with any addition or exceptions noted below.Further care pending palliative/ hospice care evaluation and placement pending Family consultation. <Stefano Shipman - Last Filed: 12/31/17 13:37>
[2017-12-31 13:46] LABS: Anion Gap 8 mmol/L (10-20); BUN (Urea Nitrogen) 20 mg/dL (9.8-20.1); Calc. Creatinine Clearance 37 mL/min (70-130); Carbon Dioxide 26 mmol/L (23-31); Chloride 114 mmol/L (98-107); Estimated GFR-MDRD 40; Glucose 87 mg/dL (83-110); Potassium 4.2 mmol/L (3.5-5.1); Sodium 144 mmol/L (136-145)
[2017-12-31 16:18] VITALS: BP 125/60; TEMP 97
--- NOTE | 2018-01-01 13:42 | DIS-2 ---
DATE OF SERVICE: 12/31/2017 DATE OF ADMISSION: 12/28/2017 DATE OF DISCHARGE: 12/31/2017 LOCATION: [facility]. RESIDENT PHYSICIAN: Dr. Daniele Coleman. ADMITTING ATTENDING: Dr. Stefano Shipman. DISCHARGE ATTENDING: Dr. Stefano Shipman. CO-SIGNER: Dr. Stefano Shipman. CONSULTATIONS: Nephrology, Dr. Melissa Monge. PROCEDURES: 1. Echocardiogram done on 12/28/2017 showed atrial fibrillation with slow (ventricular response, lef t axis deviation, left bundle branch block. 2. Brain CT done on 12/28/2017 showed chronic changes, no acute intracranial abnormalities. Moderat e fluid filling of the right mastoids. 2. Chest x-ray done on 12/29/2017 showed stable appearance of the chest. Continue follow up until f ull resolution advised. 3. Echocardiogram done on 12/30/2017 showed left ventricular size moderately increased. There is se otto concentric left ventricular hypertrophy, ejection fraction estimated at 25%-30%. 4. Atrial fibrillation. Left atrium moderately to severely dilated. Moderate mitral regurgitation present. No aortic stenosis. Mild aortic insufficiency. Moderate tricuspid regurgitation. Moderat ladonna elevated pulmonary artery pressure. PRIMARY DIAGNOSES: 1. Hypernatremia. 2. Heart failure with reduced ejection fraction. 3. Bradycardia. SECONDARY DIAGNOSES: 1. Acute encephalopathy. 2. Elevated troponin. 3. Dementia. 4. Hypertension. DISCHARGE MEDICATIONS: 1. Aspirin 81 mg p.o. daily. 2. Coreg 3.125 mg p.o. b.i.d. 3. Furosemide 20 mg daily. 4. Allopurinol 300 mg 1 tab p.o. daily. 5. Atorvastatin 10 mg daily. 6. Colace 100 mg daily. 7. DuoNeb 3 mL t.i.d. 8. Multivitamin 1 tab p.o. daily. 9. Omeprazole 20 mg p.o. q.h.s. 10. Spironolactone 12.5 mg p.o. q.a.m. with meals. DISCONTINUED MEDICATIONS: Donepezil. HISTORY OF PRESENT ILLNESS AND HOSPITAL COURSE: The patient is an 87-year-old female with a past his tory of dementia, prior TIAs, gout, and hypertension, who came in from the nursing facility after the patient was noted to be more lethargic over the last 24 hours and that the staff there noticed a vaishali nge in her baseline energy and mentation. On presentation to [facility], the patient was thought to h ave a right lower lobe pneumonia as a possible cause of her decreased energy; however, this severely rotated the image and a procalcitonin was checked and found to be 0.012 making pneumonia unlikely. O n arrival to the [facility], she had a CT of the brain, which showed no acute process; however, sh e was found to be hypernatremic, hypothermic, bradycardic, but a stable BP. TSH was checked given th e patient's symptoms and that was within normal limits. The results of those are free T4 of 1.14 and TSH was 1.8291. Of note, the patient's BNP was found to be 2126 and she had an echocardiogram, whic h showed a severely reduced ejection fraction estimated at 25%-30%. The patient was transitioned to the appropriate medications for this process. On initial presentation to the outside ED, she was not ed to have elevated troponins, initially 0.779. On initial presentation, she was given therapeutic L ovenox for this. However, given her presentation and lack of EKG changes in addition to down trendin g troponins, this was thought to be secondary to demand ischemia given her severely elevated BNP in a ddition to clinical evidence of volume overload. On admission, her sodium was found to be 153, which subsequently corrected to 144 on discharge. This was likely secondary to free water deficit and the patient was given D5W, initially 135 mL per hour and subsequently later maintenance free water. Aft er correction of the patient's hypernatremia, gentle diuresis was attempted and the patient noted neg ative 1.25 liters by discharge. The patient's discharge weight was 87.498 kilograms. Both palliativ e care and case management were consulted regarding the patient's mental status. In regard to the martinez prasad's decreased p.o. intake and likely had a recurrence of her hypernatremia from lack of free wate r intake, ultimately family decided that the patient would be out of hospital DNR and decided against placing a PEG tube to help with free water replacement. Regarding the patient's bradycardia, she was asymptomatic through these periods, but this was thought to be secondary to the beginning of a sick sinus syndrome versus medication side effect. Her donepe zil was discontinued secondary to concern for causing bradycardia. DISPOSITION: The patient left the hospital in stable condition. DISCHARGE INSTRUCTIONS: 1. Location: [facility]. 2. Diet: Heart healthy pureed nectar thick. 3. Activity: Ad andres. 4. Follow up with primary care provider in 7-10 days following discharge.
--- NOTE | 2018-01-03 00:04 | EKG ---
Test Reason : Blood Pressure : / mmHG Vent. Rate : 059 BPM Atrial Rate : 227 BPM P-R Int : 000 ms QRS Dur : 126 ms QT Int : 498 ms P-R-T Axes : 000 -72 133 degrees QTc Int : 493 ms Atrial fibrillation with slow ventricular response Left axis deviation Left bundle branch block Abnormal ECG Confirmed by GIORGIO CARMICHAEL ([id number]), index editor NALLELY ESPANA ([id number]) on 01/03/2018 12:04:16 AM Referred By: Confirmed By:GIORGIO CARMICHAEL
--- NOTE | 2018-01-04 13:50 | PQF ---
ADVID FRANCISCO GENESIS JUAREZ [id number] [facility]- B02 [id number] CLINICAL DOCUMENTATION CLARIFICATION FORM: POST DISCHARGE Addendum to original discharge summary date: ____ Late entry note date: __ Documentation in H&P assessment mentions #3 SEPSIS due to presumend PNA, However, Sepsis was not carried through in the progress notes. Please confirm or deny the diagnoiss of SEPSIS. Please respond on this query and include in the dicated d/c summary Please exercise your independent, professional judgment in responding to the clarification form. Clinical indicators are provided on the bottom of this form for your review Please check appropriate box(s): Conflicting documentation was noted in the Medical Record, please clarify if patient is being treated/monitored for: [x ]Patient diagnosed and treated for SEPSIS -due to PNA bacterial -due to PNA- viral - due to aspiration - due to other (specify) [ ]Patient did not have SEPSIS (ruled out) In addition, please specify: Present on Admission (POA): [ x ] Yes [ ] No [ ] Unable to determine For continuity of documentation, please document condition throughout progress notes and discharge summary. Thank You. CLINICAL INDICATORS - SIGNS / SYMPTOMS/ LABS --Bradycardia --leukopenia --hypothermia RISK FACTORS --pneumonia --advance age --bed bound TREATMENT -- antibiotic administration (This form is maintained as a part of the permanent medical record) 2014 [employer] All Rights Reserved Bea [email or web address] [phone] HEATH
== END 2017-12-31 17:33 | DRG 871 ==
LOC: ERS 07:55 → IMCU/EMU 08:10
PROVIDERS: ADMIT Family Medicine; ATTEND Family Medicine
PROC: B246ZZ4 Ultrasonography of Right and Left Heart, Transesophageal (ICD-10-PCS; principal; 2017-12-30)
PROC: B24CZZ4 Ultrasonography of Pericardium, Transesophageal (ICD-10-PCS; 2017-12-30)
DX: A41.9 Sepsis, unspecified organism (principal); J18.9 Pneumonia, unspecified organism; G93.41 Metabolic encephalopathy; I21.A1 Myocardial infarction type 2; N17.9 Acute kidney failure, unspecified; I48.92 Unspecified atrial flutter; E87.0 Hyperosmolality and hypernatremia; J44.0 Chronic obstructive pulmonary disease with (acute) lower respiratory infection; I13.0 Hypertensive heart and chronic kidney disease with heart failure and stage 1 through stage 4 chronic kidney disease, or unspecified chronic kidney disease; I50.22 Chronic systolic (congestive) heart failure; N18.4 Chronic kidney disease, stage 4 (severe); Z66 Do not resuscitate; F03.90 Unspecified dementia, unspecified severity, without behavioral disturbance, psychotic disturbance, mood disturbance, and anxiety; I69.321 Dysphasia following cerebral infarction; K21.9 Gastro-esophageal reflux disease without esophagitis; M10.9 Gout, unspecified; M19.90 Unspecified osteoarthritis, unspecified site; E11.22 Type 2 diabetes mellitus with diabetic chronic kidney disease; I69.322 Dysarthria following cerebral infarction; J44.9 Chronic obstructive pulmonary disease, unspecified; E78.5 Hyperlipidemia, unspecified; I48.91 Unspecified atrial fibrillation; L89.152 Pressure ulcer of sacral region, stage 2; L89.322 Pressure ulcer of left buttock, stage 2; R00.1 Bradycardia, unspecified; F31.9 Bipolar disorder, unspecified; F39 Unspecified mood [affective] disorder; R74.0 Nonspecific elevation of levels of transaminase and lactic acid dehydrogenase [LDH]
CPT/HCPCS: 36415; 36416; 70450; 71045; 80053; 83735; 83880; 83930; 83935; 84100; 84145; 84300; 84439; 84443; 85025; 93005; 93010; 93306; 94640; 96365; G8996-GN-CM; G8997-GN-CL; J2543; J7050; J7620